=== PATIENT | female | born 1970 | race Caucasian/White ===

== ENCOUNTER → 2018-12-20 | Outpatient (CLI) | payer BC ==
--- NOTE | 2018-12-20 16:43 | XR ---
EXAMINATION TYPE: XR lumbosacral spine min 4V DATE OF EXAM: 12/20/2018 COMPARISON: None HISTORY: Low back pain TECHNIQUE: 5 view lumbar spine FINDINGS: T12 ribs are rudimentary. There are 5 lumbar-type vertebral bodies. The pedicles are intact. Disc heights are preserved. Verteb ral body heights are preserved. Alignment is normal. No spondylolytic defects are evident. IMPRESSION: 1. Normal 5 view lumbar spine
== END | disposition home or self-care (01) ==
LOC: RADXRYALE 16:17
PROVIDERS: ATTEND Internal Medicine
DX: M54.5 Low back pain (principal)
CPT/HCPCS: 72110